=== PATIENT | female | born 1995 | race Caucasian/White ===

== ENCOUNTER 2018-03-02 09:43 | Emergency (ER) | payer BC ==
--- NOTE | 2018-03-02 10:03 | EDPHY ---
H & P Time Seen by Provider: 03/02/18 09:53 HPI/ROS: CHIEF COMPLAINT: "I think my tattoo is infected" HISTORY OF PRESENT ILLNESS: 22-year-old immunocompetent female with up-to-date tetanus, no history of MRSA or chronic skin infections headache test 2 placed 3 days ago on her left medial foot and now notes erythema at this site. She is able to bear weight albeit with some discomfort. No fever no chills no nausea no vomiting. PHYSICAL EXAM (Prior to examination, patient consented to physical exam, hands were washed and my usual and customary physical exam procedures followed) 1) GENERAL: Well-developed, well-nourished, alert and oriented. Appears to be in no acute distress. 2) HEAD: Normocephalic 3) HEENT: sclera anicteric 4) LUNGS: Breathing comfortably. 5) SKIN: Left medial calcaneus region patient has a tattoo of mountains and a wave with erythema present and soft tissue swelling with no crepitus. No lymphangitic streaking. DP PT pulses are present and brisk . Capillary refill sec Smoking Status: Never smoked Constitutional: Initial Vital Signs Temperature (C) 36.5 C 03/02/18 09:46 Heart Rate 80 03/02/18 09:46 Respiratory Rate 17 03/02/18 09:46 Blood Pressure 122/70 H 03/02/18 09:46 O2 Sat (%) 97 03/02/18 09:46 O2 Delivery Mode Room Air Allergies/Adverse Reactions: No Known Allergies Allergy (Unverified 03/02/18 09:45) Home Medications: Medication Instructions Recorded Cephalexin [Keflex] 500 mg PO TID 10 Days cap 03/02/18 Fe 24 Tablet 03/02/18 MDM/Departure - [facility] ED Course/Re-evaluation: Plan will be monotherapy with Keflex for early infection of her left medial ankle attached. Doubt necrotizing fasciitis. Care of patient under supervision of secondary supervising physician Dr Rocha . - Depart Disposition: Home, Routine, Self-Care Clinical Impression: Infected tattoo Condition: Good Instructions: Cellulitis (ED) Additional Instructions: Return to the ER if you develop redness, swelling, discharge, warmth to the wound, red streaks going up your leg, or any other symptoms that concern you. Prescriptions: Cephalexin [Keflex] 500 mg PO TID 10 Days cap Referrals: Follow-up, with primary care provider in 5-7 days [Other] - As per Instructions
[2018-03-02 10:25] VITALS: BP 114/80
== END 2018-03-02 10:13 | disposition home or self-care (01) ==
DX: L81.8 Other specified disorders of pigmentation (principal)